=== PATIENT | female | born 1970 | race Asian ===

== ENCOUNTER 2020-11-28 12:23 | Emergency (ER) | payer BC ==
[~2020-11-28] VITALS: Ht 152.4 cm; Wt 47.0 kg
[2020-11-28] VITALS (15 sets, daily range): BP systolic 127–162; BP diastolic 66–85
[2020-11-28] MEDS ORDERED: ACETAMINOPHEN 325MG TABLET PO STA (12:39)
[2020-11-28 13:20] LABS: BASOPHILS % 0.7 % (0.0-2.0); EOSINOPHILS % 0.7 % (0.0-5.0); HEMATOCRIT. 35.3 % (36.0-48.0); HEMOGLOBIN. 11.6 g/dL (12.0-16.0); LYMPHOCYTES % 18.2 % (20.0-50.0); MEAN CORPUSCULAR HEMOGLOBIN 29.4 pg (28.0-32.0); MEAN CORPUSCULAR VOLUME 89.8 fL (81.0-99.0); MEAN PLATELET VOLUME 7.3 fl (7.4-10.4); MONOCYTES % 10.5 % (2.0-8.0); NEUTROPHILS % 69.9 % (40.0-76.0); PLATELET 336 x1000/uL (130-400); RED BLOOD CELL COUNT 3.93 mill/uL (4.2-5.4); RED CELL DISTRIBUTION WIDTH 14.5 % (11.6-14.6)
[2020-11-28 13:25] LABS: CHLORIDE 104 mEq/L (98-107)
[2020-11-28 13:26] LABS: HCG SCREEN NEGATIVE
[2020-11-28 14:08] LABS: PROTHROMBIN TIME 10.6 sec (9.6-11.0)
[2020-11-28] MEDS ORDERED: LIDOCAINE HCL 1% 20ML VIAL (Pyxis) INJ ONE (14:46)
[2020-11-28] MEDS ORDERED: SODIUM BICARBONATE 4% (2.4MEQ) 5ML VIAL IV ONE (14:46)
[2020-11-28] MEDS ORDERED: FENTANYL CITRATE/PF 50MCG/ML 2ML VIAL ONE (15:07)
[2020-11-28] MEDS ORDERED: CEFAZOLIN 1000MG PREMIX 50 ML IV ONE ×2 (15:13→15:15)
[2020-11-29 07:38] VITALS: BP 127/71
== END 2020-11-28 17:43 | disposition home or self-care (01) ==
LOC: ER 12:23
DX: N15.1 Renal and perinephric abscess (principal)
CPT/HCPCS: 36415; 76942; 80053; 83690; 84703; 85025; 85610; 87070; 87075; 87205; 87426; 93005; 96365; 99285; C1729; C1760; J0690; J3010; J3490; Z7610; 99152; 99153; J7040; G0500